=== PATIENT | male | born 2005 | race Two or more races ===

== ENCOUNTER 2025-01-05 14:57 | Emergency (ER) | payer OTHER, BC, SELFPAY ==
--- OUTSIDE RECORDS SUMMARY | 2023-11-06 09:30 | XMS_ITS | Continuity of Care Document ---
Demographics Address [address] [place] [address] Home Phone Preferred Language en Marital Status Never Scientologist Affiliation Unknown Race Unknown Additional Race(s) Other Race Ethnic Group or Author Organization [facility] Address [address] [place] [address] Phone Care Team Providers Care Mainframe Systems Engineer Name Role Phone Jana SANON-Chalino, Dottie Unavailable Unavaila ble Allergies, Adverse Reactions, Alerts Substance Reaction Status Criticality No Known Allergies Active No Inform ation Problems Condition Type Effective Dates (start - stop) Clini liana Status Comments No Known Problems Procedures Procedure Date REMOVE IMPACTED EAR WAX OFFICE/OUTPATIENT VISIT, [facility] Advance Directives Directive Yes / No Effective Date File Name No Information Encounters Encounter Description Practice Location Reason(s) For Visit Diagnoses Date Provider Providers Copied on Encounter OFFICE/OUTPAT IENT VISIT, [facility], [address] [place] [address], [id number], [place] tel:[phone] [facility] Est Care (chief complaint) Impacted cerumen, bilateralBody mass index [BMI] 28.0-28.9, adult Jana FORD PAPER MACHINE BACK TENDER-C Dottie. [address] [place] [address], [address], [place]. tel:[phone] Family History Family Member Type Diagnosis Age At Onset No Information Payers Payer name Insurance type Covered republican ID Authoriza tion(s) Self Pay Cap 09 Social History Type Description Quantity Date Captured Comments Alcohol Use Details No Caffeine Use Details No Tobacco Use Status Current non-smoker Apr-12-20 24 Smoking Status Never smoker Non-Smoking Tobacco Use Details : No Details Available : No Details Available Sex Male Sexual Orientation Straight or heterosexual Gender Identity Male Vital Signs Date / Time: Height Weight BMI Pulse Rate Blood Pressure Temperature Respiratory Rate Body Surface Area Head Circumference Head Circ. Percentile Wt./Nick. Percentile BMI percentile Pulse Ox Inhaled Ox 1:32 PM 74.00 in 100.879 kg (222.40 lbs) 28.5 5 kg/m eter (2) 96 /min 118/70 mm[Hg] 98.50 F 16 /min 92 96 % Chief Complaint And Reason For Visit From encounter dated '11/06/2023 13:30'. Est Care (chief complaint). Description: 18 YOM presents today to est care and also with c/o decreased hearing in right ear last week. Previously pt of Dr. Leonard at [facility] as peds. Went to ER,had it flushed and was told was ear wax build up and rest of it needs to come out. Denies fever/chills. Denies ear pain. Has tried to remove at home without success. No hx ear problems previously. Not recently ill. Has not COVID vaccine and not flu vaccine. 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 Lives with his family. Does not smoke or vape. Does not drink ETOH. Does not use drugs. Denies other concerns today. --LKastor TORCH BURNER Reason For Referral Reason For Referral No Information Plan Of Treatment Date Type Action Status Goal Unhealthy drug use screening . Due on due Goal Tdap Vaccine. Due on 2023 due Goal Influenza vaccine. Due on Ap due Goal Hepatitis C screening. Due o n due Goal PRAPARE ASSESSMENT. Due on A due Goal Depression screening. Due on due Goal Tdap. Due on due Goal RLP. Due on due Goal Lifestyle education yvette cunningham diet completed Goal Dietary management education , guidance, and counseling completed History Of Present Illness Encounter Date Complaint History Of Prese nt Illness Est Care 18 YOM presents today to est care and also with c/o decreased hearing in right ear last week. Previously pt of Dr. Leonard at [facility] as peds. Went to ER, had it flushed and was told was ear wax build up and rest of it needs to come out. Denies fever/chills. Denies ear pain. Has tried to remove at home without success. No hx ear problems previously. Not recently ill. Has not COVID vaccine and not flu vaccine. 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 Lives with his family. Does not smoke or vape. Does not drink ETOH. Does not use drugs. Denies other concerns today. --LKastor TORCH BURNER Functional Status Date Functional Assessmen t No Information Instructions Date Instruction Additional Infor mation Lifestyle education regarding di et Related to Body mass index [BMI] 28.0-28.9, adult Giving encouragement to exercise Related to Body mass index [BMI] 28.0-28.9, adult Dietary management e ducation, guidance, and counseling Related to Body mass index [BMI] 28.0-28.9, adult Assessments Type Assessment Date assessment Impacted cerumen, bilateral assessment Body mass index [BMI] 28.0-28.9, adult Mental Status Date Cognitive Assessment Orientation - [place] ed to time, place, person, situation. Patient Care Teams Name Effective Dates (start - stop) Status Members No Information
[2025-01-05 14:59] VITALS: BP 155/103; PULSE 102; TEMP 36.7; O2SAT 96; BMI 30.8
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
--- OUTSIDE RECORDS SUMMARY | 2025-01-05 15:48 | XMS_ITS | Encounter Summary ---
Author Organization [facility] Address [address] [place] [address] Care Team Providers Care Nursing Home Physician Name Role Phone Jax Leonard MD Primary Care Provider [phone] Encounter Details Date Type Department Care Team (Late st Contact Info) Description 12/15/2022 Abstract [facility] [address] [place] [address] Michoacano Crowder, DPM FACFAS [address] [place] [address] Social History Tobacco Use Types Packs/Day Years Used Date Smoking Tobacco: Never Tobacco Cessation:Counseling Given: Not Answered Alcohol Use Standard Drinks/Week Comments Never 0 (1 standard drink = 0.6 oz pur e alcohol) Caffeine Intake: none Sex and Gender Information Value Date Recorded Sex Assigned at Not on file Legal Sex Male 7:08 PM EDT Gender Identity Not on file Sexual Orientation Not on file documented as of this encounter Plan of Treatment Not on file documented as of this encounter Visit Diagnoses Not on filedocumented in this encounter Care Teams Nursing Home Physician Relationship Specialty Start Date End Date Jax Leonard MD [address] [place] [address] PCP - General Pediatrics 12/17/22 documented as of this encounter
--- OUTSIDE RECORDS SUMMARY | 2025-01-05 15:48 | XMS_ITS | Encounter Summary ---
Demographics Address [address] [place] [address] Home Phone Mobile Phone Email Address Preferred Language en Marital Status Unmarried Scientologist Affiliation Unknown Race White Ethnic Group or Author Organization [facility] Address [address] [facility] [place] [address] Care Team Providers Care Serger Name Role Phone Jax Leonard MD Primary Care Provider [phone] Encounter Details Date Type Department Care Team (Late st Contact Info) Description 09/28/2024 Abstract [facility] [address] [place] [id number] Michoacano Crowder, DPM FACFAS [address] [place] [address] Social History Tobacco Use Types Packs/Day Years Used Date Smoking Tobacco: Never Alcohol Use Standard Drinks/Week Comments Never 0 [...] on filedocumented in this encounter Care Teams Serger Relationship Specialty Start Date End Date Jax Leonard MD [address] [place] [address] PCP - General Pediatrics 12/17/22 documented as of this encounter
--- OUTSIDE RECORDS SUMMARY | 2025-01-05 15:48 | XMS_ITS | Clinical Summary ---
Author Organization [facility] Address [address] [place] [address] Care Team Providers Care Fuse Cup Expander Name Role Phone Jax Leonard MD Primary Care Provider [phone] Allergies No known active allergies Medications No known medications Active Problems Problem Noted Date Diagnosed Date Onychomycosis 12/17/2022 Onychocryptosis 12/17/2022 Encounters Date Type Department Care Team Description 11/23/2024 9:10 AM EDT Office Visit [facility] [address] [place] [address] Michoacano Crowder, DPM FACFAS Abscess of toe, right (Primary Dx); Onychocryptosis 11/23/2024 Bamboo flowsheet [facility] [address] [place] [phone] DolMichoacano ferguson D, DPM FACFAS from Last 3 Months Family History Relation Name Status Comments Father Alive Mother Alive Social History Tobacco Use Types Packs/Day Years Used Date Smoking Tobacco: Never Tobacco Cessation:Counseling Given: Yes Alcohol Use Standard Drinks/Week Comments Never 0 (1 standard drink = 0.6 oz pur e alcohol) Caffeine Intake: none Sex and Gender Information Value Date Recorded Sex Assigned at Not on file Legal Sex Male 7:08 PM EDT Gender Identity Not on file Sexual Orientation Not on file Last Filed Vital Signs Vital Sign Reading Time Taken Comments Blood Pressure 128/75 11/23/2024 9:44 AM EDT Pulse 75 11/23/2024 9:44 AM EDT Temperature - - Respiratory Rate - - Oxygen Saturation - - Inhaled Oxygen Concentration - - Weight 95.3 kg (210 lb) 11/23/2024 9:44 AM EDT Height 190.5 cm (6' 3 ) 11/23/2024 9:44 AM EDT Body Mass Index 26.25 11/23/2024 9:44 AM EDT Plan of Treatment Health Maintenance Due Date Last Done Comments Influenza Vaccine (Season Ended) 2025 07/12/2020, 08/27/2018, 04/18/2016, Additional history exists Insurance * Guarantor: Vj Arnold Account Type Relation to Patient Date of Phone Billing Address Personal/Family Self 2005 [address] [place] [address] [employer] Care Teams Fuse Cup Expander Relationship Specialty Start Date End Date Jax Leonard MD [address] [place] [address] PCP - General Pediatrics 12/17/22
--- OUTSIDE RECORDS SUMMARY | 2025-01-05 15:48 | XMS_ITS | Encounter Summary ---
Author Organization [facility] Address [address] [place] [address] Care Team Providers Care Commercial Underwriter Name Role Phone Jax Leonard MD Primary Care Provider [phone] Encounter Details Date Type Department Care Team (Late st Contact Info) Description 06/17/2023 Orders Only [facility] [address] [place] [phone] Estrellita Bright MA [address] [place] [address] Abscess of great toe, right Social History Tobacco Use Types Packs/Day Years [...] as of this encounter Plan of Treatment Scheduled Orders Name Type Priority Associated Diagnoses Orde r Schedule Wound culture Microbiology Routine Abscess of great toe, right Expected: 06/17/2023 (Approximate), Expires: 07/17/2023 documented as of this encounter Visit Diagnoses Diagnosis Abscess of great toe, right documented in this encounter Care Teams Commercial Underwriter Relationship Specialty Start Date End Date Jax Leonard MD [address] [place] [address] PCP - General Pediatrics 12/17/22 documented as of this encounter
--- OUTSIDE RECORDS SUMMARY | 2025-01-05 15:48 | XMS_ITS | Encounter Summary ---
Demographics Address [address] [place] [address] Home Phone Mobile Phone Email Address Preferred Language en Marital Status Unmarried Amish Affiliation Unknown Race White Ethnic Group or Author Organization [facility] Address [address] [facility] [place] [address] Care Team Providers Care Pulpwood Buyer Name Role Phone Jax Leonard MD Primary Care Provider [phone] Encounter Details Date Type Department Care Team (Late st Contact Info) Description 06/22/2023 Abstract [facility] [address] [place] [phone] Michoacano Crowder, DPM FACFAS [address] [place] [address] Social History Tobacco Use Types Packs/Day Years [...] on filedocumented in this encounter Care Teams Pulpwood Buyer Relationship Specialty Start Date End Date Jax Leonard MD [address] [place] [address] PCP - General Pediatrics 12/17/22 documented as of this encounter
--- OUTSIDE RECORDS SUMMARY | 2025-01-05 15:48 | XMS_ITS | Encounter Summary ---
Demographics Address [address] [place] [address] Home Phone Mobile Phone Email Address Preferred Language en Marital Status Unmarried Mandaen Affiliation Unknown Race White Ethnic Group or Author Organization [facility] Address [address] [facility] [place] [address] Care Team Providers Care Rose Grower Name Role Phone Jax Leonard MD Primary Care Provider [phone] Encounter Details Date Type Department Care Team (Late st Contact Info) Description 01/11/2024 Abstract [facility] [address] [place] [phone] Michoacano Crowder, DPM FACFAS [address] [place] [address] Social History Tobacco Use Types Packs/Day Years [...] on filedocumented in this encounter Care Teams Rose Grower Relationship Specialty Start Date End Date Jax Leonard MD [address] [place] [address] PCP - General Pediatrics 12/17/22 documented as of this encounter
--- OUTSIDE RECORDS SUMMARY | 2025-01-05 15:48 | XMS_ITS | Clinical Summary ---
Author Organization [facility] Address [address] [place], [place] [id number] Care Team Providers Care Tap Out Operator Name Role Phone Unavailable Primary Care Provider Unavailabl e Allergies No known active allergies Medications CEPHALEXIN 250 MG/5 ML ORAL SUSP Give one (1) teaspoon three (3) times daily for seven (7) days QS 0 05/08/2008 Active ACETAMINOPHEN-C ODEINE 120 MG-12 MG/5 ML ELIXIR Give one (1) teaspoon to 1 1/2 teaspoon every 4-6 hrs as needed for pain 120 0 05/08/2008 Active Social History Tobacco Use Types Packs/Day Years Used Date Smoking Tobacco: Never Assessed Sex and Gender Information Value Date Recorded Sex Assigned at Not on file Legal Sex Male 8:15 AM EST Gender Identity Not on file Sexual Orientation Not on file Plan of Treatment Health Maintenance Due Date Last Done Comments Peds To Adult Transition Initial Discussion 2016 Peds To Adult Transition Annual Assessment 2018 HPV Vaccine (1 - Male 3-dose series) 2019 Meningococcal B Vaccine (1 of 2 - Standard) 2020 Anxiety Screening 2022 Depression Screening 2022 HIV Screening 2022 Hepatitis C Screening 2022 DTaP,Tdap,Td Vaccine (1 - Tdap) 2023 Hepatitis B Vaccine (1 of 3 - 19+ 3-dose series) 06/29 Covid-19 Vaccine (1 - season) 2024 Influenza Vaccine (Season Ended) 2025 Insurance [address] [place] [address] [employer]
--- OUTSIDE RECORDS SUMMARY | 2025-01-05 15:48 | XMS_ITS | Encounter Summary ---
Demographics Address [address] [place] [address] Home Phone Mobile Phone Email Address Preferred Language en Marital Status Unmarried Worship Affiliation Unknown Race White Ethnic Group or Author Organization [facility] Address [address] [facility] [place] [address] Care Team Providers Care Production Assembly Supervisor Name Role Phone Jax Leonard MD Primary Care Provider [phone] Encounter Details Date Type Department Care Team (Late st Contact Info) Description 06/17/2023 Abstract [facility] [address] [place] [id number] [place]ano Crowder, DPM FACFAS [address] [place] [address] Social History Tobacco Use Types Packs/Day Years [...] on filedocumented in this encounter Care Teams Production Assembly Supervisor Relationship Specialty Start Date End Date Jax Leonard MD [address] [place] [address] PCP - General Pediatrics 12/17/22 documented as of this encounter
--- NOTE | 2025-01-05 16:04 | PC.NURSE ---
sling applied to left arm, pms intact pre and post sling application
== END 2025-01-05 16:30 | disposition home or self-care (01) ==
PROVIDERS: Emergency Provider Emergency Medicine
DX: S43.402A Unspecified sprain of left shoulder joint, initial encounter (principal); V49.49XA Driver injured in collision with other motor vehicles in traffic accident, initial encounter; M25.512 Pain in left shoulder
CPT/HCPCS: 73000; 73030; 99283